=== PATIENT | male | born 1970 | race Two or more races ===

== ENCOUNTER 2025-08-22 17:36 | Emergency (ER) | payer OTHER ==
[~2025-08-22] VITALS: Ht 167.6 cm; Wt 72.6 kg
[2025-08-22 18:28] VITALS: BP 143/87; O2SAT 100
[2025-08-22] MEDS ORDERED: DEXAMETHASONE SODIUM PHOSPHATE 4 MG/ML VIAL IM ONE (20:00)
[2025-08-22] MEDS ORDERED: KETOROLAC TROMETHAMINE 60 MG VIAL IM ONE ×2 (20:00→20:14)
[2025-08-22] MEDS ORDERED: ORPHENADRINE CITRATE 30 MG/ML AMPUL IM ONE (20:00)
[2025-08-22] MEDS ORDERED: DEXAMETHASONE SODIUM PHOSPHATE 4 MG/ML VIAL ONE (20:15)
[2025-08-22] MEDS ORDERED: ORPHENADRINE CITRATE 30 MG/ML AMPUL ONE (20:15)
[2025-08-22 20:33] LABS: BASO % 0.8 % (0.1-1.2); EOS # 0.25 (0.04-0.54); EOS % 3.3 % (0.7-7.0); LYMPH # 3.12 (1.18-3.74); LYMPH % 41.1 % (19.3-53.1); MEAN PLATELET VOLUME 8.90 fl (9.4-12.4); MONO # 0.59 (0.24-0.82); MONO % 7.8 % (4.7-12.5); NEUT # 3.55 (1.56-6.13); NEUT % 46.7 % (34.0-71.1); RED CELL DISTRIBUTION WIDTH 12.5 % (11.6-14.4)
[2025-08-22 21:00] LABS: ALT/SGPT 35.0 U/L (12-78); AST/SGOT 16.0 U/L (15-37); BILIRUBIN TOTAL 0.95 mg/dL (0.3-1.2); BUN CREA RATIO 14.0 (7.0-25.0); CREATININE SERUM 0.96 mg/dL (0.70-1.30); GFR 81.93; GLOBULINA 3.7 G/DL (2.4-3.5); GLUCOSE FASTING 100.0 mg/dL (65-100); OSMOLALITY SERUM 287.0 MOSM/KG (275-295)
[2025-08-22 22:35] LABS: URINE APPEARANCE Clear; URINE BILIRRUBIN Negative (NEGATIVE); URINE BLOOD Negative; URINE COLOR Yellow; URINE GLUCOSE Negative (NEGATIVE); URINE KETONE Negative (NEGATIVE); URINE LEUKOCYTE Negative; URINE NITRATE Negative; URINE PROTEIN Negative (NEGATIVE); URINE UROBILINOGEN 1.0 E.U./dl
[2025-08-22] MEDS ORDERED: TAMSULOSIN HCL0.4 MG PO (22:35)
[2025-08-22] MEDS ORDERED: 8HR ARTHRITIS650 M1 PO (22:35)
[2025-08-22] MEDS ORDERED: NORFLEX100MG PO (22:35)
[2025-08-22 22:39] LABS: URINE BACTERIA 4.5 uL (0.0-1933); URINE RBC 19.1 uL (0.0-20.8)
[2025-08-22 22:43] LABS: URINE CAST 0.00 uL (0.0-1.40); URINE EPITHELIAL CELLS 0.1 uL (0.0-38.8); URINE WBC 1.2 uL (0.0-23.2)
== END 2025-08-22 22:42 | disposition home or self-care (01) ==
LOC: ER 17:36
PROVIDERS: General Practice
DX: M54.50 Low back pain, unspecified (principal); M62.838 Other muscle spasm